=== PATIENT | female | born 1985 | race Caucasian/White ===

== ENCOUNTER 2023-09-03 19:03 | Emergency (ER) | payer OTHER, SELFPAY ==
[2023-09-03 19:11] VITALS: BP 120/64
[2023-09-03 19:30] LABS: Hemoglobin 14.1 g/dL (12.0-16.0); Mean Corp Hgb Conc. 36.2 g/dL (33.0-37.0); Mean Corpuscular Hgb 33.3 pg (27.0-31.0); Mean Platelet Volume 9.2 fL (7.4-10.4); Platelet Count 249 10^3/uL (130-400); Red Blood Cell Count 4.24 10^6/uL (4.20-5.40); Red Cell Dist. Width 11.4 % (11.5-14.5); White Blood Cell Count 8.5 10^3/uL (4.8-10.8)
[2023-09-03 19:31] LABS: Urine Albumin Negative (Neg - Trace); Urine Bilirubin Negative (Negative); Urine Character Clear (Clear); Urine Color Yellow; Urine Glucose Negative (Negative); Urine Ketone Negative (Negative); Urine Leukocyte Negative (Negative); Urine Nitrite Negative (Negative); Urine Occult Blood Negative (Negative); Urine Urobilinogen Negative (Neg - 1+)
[2023-09-03 19:45] LABS: Blood Urea Nitrogen 22 mg/dl (7-17); Calcium 9.9 mg/dl (8.4-10.2); Carbon Dioxide 29 mmol/L (22-30); Chloride 99 mmol/L (98-107); Glucose 129 mg/dl (70-99); Potassium 4.2 mmol/L (3.5-5.1); Sodium 136 mmol/L (135-145); eGFR > 60.00
[2023-09-03 23:08] VITALS: BP 115/73
--- NOTE | 2023-09-03 23:18 | ED.GENMED ---
History of Present Illness
General
Chief Complaint: Urinary Symptoms
Source: patient
Time Seen by Provider: 09/03/23 23:07
Travel History
Have you had any contact with someone who has COVID-19?: No
Do you have any symptoms of coronavirus? Fever > 100 degrees, chills, cough, shortness of breath, sore throat, loss of taste or smell, muscle aches, or headache?: No
History of Present Illness
History of Present Illness:
38-year-old female presents to the emergency room complaining of a urinary tract infection. Patient had gone to her primary care doctor because she was experiencing some foul-smelling urine. She had a urinalysis sent which was evidently positive
for nitrates and leukocyte esterase. She was presumptively started on Bactrim. A urine culture was performed which evidently grew E. coli that was resistant to many antibiotics. Patient received a phone call from her doctor today that she had to
come to the emergency room for IV antibiotics because of a resistant organism. Patient denies any fever, dysuria or frequency. She does have some back pain but admits to chronic back pain. She does not really feel any different than her baseline
other than recently developing a runny nose and cold symptoms.
Past History
Past History
ED Past Medical History: Other (Pituitary adenoma)
ED Past Surgical History: Tonsilectomy
Social History
Tobacco: Non-smoker
Alcohol: Occasional
Drug: None
Living: with family
Employment: Employed
Phy Exam
Physical Exam
Physical Exam:
General: Awake, Alert, Oriented X3. No acute distress.
Vitals: unremarkable
Head: Atraumatic
Eyes: Pupils equal, EOMI
Throat: Airway intact, no exudates
Neck: Trachea midline
Lungs: Clear and equal b/l
Heart: Regular rate, no murmurs
Abd: Soft, Nontender, No pulsatile mass
Back: No CVA tenderness to percussion
Neuro: Nonfocal
Skin: Warm, dry, no rash
Extremities: pulses equal b/l, no edema
Course
Orders/Labs/Results
Orders:
Orders
09/03/23 19:21
Basic Metabolic Panel Urgent
Complete Blood Count/No Diff Urgent
Urinalysis Reflex To Culture Urgent
Date Specimen was Collected: 09/03/23
Time Specimen was Collected: 19:15
09/03/23 23:30
COVID-19 Antigen Urgent
Source: Nasal Swab
Influenza A+B Rapid Molecular Urgent
JOHNNY Source: Nasal Swab
Specimen Description:
Abnormal Lab Results
09/03/23
19:21
MCH 33.3 H pg
(27.0-31.0)
RDW 11.4 L %
(11.5-14.5)
BUN 22 H mg/dl
(7-17)
Glucose 129 H mg/dl
(70-99)
09/03/23 19:21
09/03/23 19:21
Vital Signs
Initial and Last Documented VS:
Initial Vital Signs
Temp Pulse Resp BP Pulse Ox
98.3 F 60 18 120/64 100
09/03/23 19:11 09/03/23 19:11 09/03/23 19:11 09/03/23 19:11 09/03/23 19:11
Last Documented Vital Signs
Temp Pulse Resp BP Pulse Ox
98.3 F 53 18 139/66 100
09/03/23 19:11 09/04/23 00:31 09/03/23 19:11 09/04/23 00:31 09/03/23 19:11
MDM/Problems Addressed
Differential Diagnosis Includes:
uti, viral illness, contaminated urine
MDM/Problems Addressed:
Patient sent to the emergency room because of abnormal urine culture that was taken as an outpatient. I was able to review the patient's urinalysis through [facility]. The urine that was done at that time did dip positive for nitrates and leukocyte
esterase however there was a significant number of squamous epithelial cells noted on the microscopic evaluation. The urine culture that was subsequently sent was positive for a bacteria with multiple antibiotic resistance however the patient never
really had true UTI symptoms. She tells me that the urinalysis was sent because of the foul smelling urine. She did not have dysuria, frequency, fever at that time. Currently she does not have any urinary tract symptoms. She does have back pain
but she has chronic back issues. Urinalysis performed here in the emergency room is completely normal. Labs that were sent were essentially normal as well. I do not believe the patient has an active urinary tract infection which requires
treatment. She did recently develop runny nose and some cold-like symptoms. COVID and flu were negative. Patient stable for discharge home.
*Pulse Oximetry
Patient hypoxic: no
*Critical Care Note
Total Time (30-74mins, 75-104mins- exclusive of procedures): Not Applicable
ED Attending Note
-
Portions of this chart may have been created with voice recognition software.� Occasional wrong word or��sound alike� substitutions may have occurred due to the inherent limitations of voice recognition software.
Discharge Plan
Departure
Patient Disposition: Home (Routine Discharge)
Date of Disposition: 09/04/23
Time of Disposition: 00:24
Patient with high blood pressure during this ER visit?: No
Condition: Good
Discharge Problem:
Abnormal laboratory test result, URI, acute
Instructions: Viral Upper Respiratory Infection, Adult (DC)
Prescriptions:
No Action
methylprednisolone [Medrol (Kevin)] 4 MG tablets,dose pack
4 tab PO . DIRECT Qty: 1 0RF
cyclobenzaprine 10 MG tablet
10 mg PO TIDPRN PRN (Reason: back muscle spasm/tightness) Qty: 30 0RF
ibuprofen 600 MG tablet
600 mg PO TIDPRN PRN (Reason: pain) Qty: 30 0RF
hydrocodone-acetaminophen 1 TABLET tablet
1 tab PO Q4HPRN PRN (Reason: pain) Qty: 8 0RF
Referrals:
Leora Mendoza CRNP [Family Provider] -
Interventions
Interventions:
*Risk Screen - Suicide Last Done: 09/03/23 19:11
*General Assessment Last Done: 09/03/23 22:33
*Neglect/Abuse Screening Last Done: 09/03/23 19:11
*ED COVID-19 Vaccine History Last Done: 09/03/23 22:33
*Nursing Disposition Last Done: 09/04/23 00:31
ED-Female Genitourinary Assessment Last Done: 09/03/23 22:33
Discharge Date and Time
Discharge Date/Time: 09/04/23 00:31
[2023-09-04 00:24] LABS: COVID-19 Antigen Negative (Negative)
[2023-09-04 00:29] VITALS: BP 139/66
[2023-09-04 00:31] VITALS: BP 139/66
== END 2023-09-04 00:31 | disposition home or self-care (01) ==
LOC: EMR 19:03
PROVIDERS: Emergency Medicine; EMERGENCY PHYSICIAN Emergency Medicine; FAMILY PHYSICIAN Nurse Practitioner Adult Health
DX: R82.90 Unspecified abnormal findings in urine (principal); J06.9 Acute upper respiratory infection, unspecified; Z11.52 Encounter for screening for COVID-19
CPT/HCPCS: 99283; 80048; 81003; 85027; 87502; 87811

== ENCOUNTER 2025-04-26 12:15 | Emergency (ER) | payer OTHER, SELFPAY ==
[2025-04-26 12:22] VITALS: BP 120/81
[2025-04-26] MEDS: NSS 1000 IV (13:23)
[2025-04-26] MEDS: TORADOL 15 MG IV (13:23)
--- NOTE | 2025-04-26 13:26 | ED.GENMED ---
History of Present Illness
General
Chief Complaint: Abdominal Pain
Source: patient
Exam Limitations: none
Time Seen by Provider: 04/26/25 13:15
Nursing documentation reviewed up to this point in time: agreed with
History of Present Illness
History of Present Illness:
Patient is a 40-year-old female who presents to the emergency department for evaluation of right upper abdominal pain. Patient states that she has experienced similar pain intermittently over the past few months however pain seemed to intensified 2
days ago. She describes the pain as located in her right upper abdomen with occasional radiation into her right back. Pain is sharp in quality. Symptoms seem worse with certain movements and have not been clearly correlated to eating. She denies
any chest or upper back pain. She denies any current pleuritic or exertional component.
She denies any associated nausea, vomiting, or fever. No productive cough. No diarrhea or constipation. No dysuria or hematuria.
Patient was seen in urgent care and sent to the emergency department for further evaluation.
She has had family members who have needed to have their gallbladders removed.
Past History
Past History
ED Past Medical History: Other (Pituitary adenoma)
ED Past Surgical History: Tonsilectomy
Social History
Tobacco: Non-smoker
Alcohol: Occasional
Drug: None
Living: with family
Employment: Employed
Review of Systems
Review of Systems
Allergies reviewed?: Yes
All Other Systems: ROS reviewed and negative except as documented in HPI and ROS
Phy Exam
Physical Exam
Physical Exam:
Vitals: Patient's vital signs are stable. Afebrile
General: Patient is well appearing, no acute distress
Skin: Warm and dry, no rashes or lesions
Head: Normocephalic, atraumatic
Eyes: Sclera nonicteric. EOMs intact. No nystagmus.
Throat: Protecting airway
Neck: Normal ROM, no cervical spine tenderness, no meningismus
Cardiac: Regular rate and rhythm, no murmurs.
Pulm: Normal respiratory effort. Lungs clear bilaterally
Abdomen: Nondistended. Abdomen soft. Mild tenderness in right upper/mid abdomen. No rebound or guarding. Negative Chicas sign. No focal tenderness at McBurney's point.
Extremities: No evidence of cyanosis or edema. No calf tenderness. Palpable DP pulses bilaterally
Neuro: AAOx3. Grossly intact.
Psychiatric: Normal affect.
Course
Orders/Labs/Results
Orders:
Orders
04/26/25 13:15
0.9% Sodium Chloride 1000 ml [Nss] 1,000 ml IV BOLUS
Ketorolac [Toradol] 15 mg IV NOW STA
Test Result ONCE
US Abdomen Complete/Upper Urgent
Comment:
Reason For Exam: RUQ pain
04/26/25 13:21
Complete Blood Count/With Diff Urgent
Comprehensive Metabolic Panel Urgent
HCG, Serum Qualitative Screen Urgent
Lipase Urgent
04/26/25 15:36
Urinalysis Reflex To Culture Urgent
Date Specimen was Collected: 04/26/25
Time Specimen was Collected: 13:21
Urine Microscopic Reflex Cult Urgent
Urine Culture Urgent
JOHNNY Source: U
Specimen Description:
Date Specimen was Collected: 04/26/25
Time Specimen was Collected: 13:21
04/26/25 15:40
CT Abd/pelvis W Iv Cont Urgent
Comment:
Reason For Exam: RUQ pain
Abnormal Lab Results
04/26/25 04/26/25
13:21 15:36
MCH 32.6 H pg
(27.0-31.0)
RDW 11.1 L %
(11.5-14.5)
Absolute Monos (auto) 0.7 H 10^3/uL
(0.1-0.6)
Sodium 133 L mmol/L
(135-145)
Ur Occult Blood Reflex 3+ A
(Negative)
Urine Nitrite (Reflex) Positive A
(Negative)
Urine Urobilinogen 2+ A
(Neg - 1+)
Leukocyte Esterase Rfl 3+ A
(Negative)
Urine RBC 3-6 A /HPF
(0-2)
Urine Bacteria (Reflex) Moderate A
(Negative)
Urine Albumin (Reflex) 2+ A
(Neg - Trace)
04/26/25 13:21
04/26/25 13:21
Vital Signs
Initial and Last Documented VS:
Initial Vital Signs
Temp Pulse Resp BP Pulse Ox
98.4 F 60 18 120/81 98
04/26/25 12:22 04/26/25 12:22 04/26/25 12:22 04/26/25 12:22 04/26/25 12:22
Last Documented Vital Signs
Temp Pulse Resp BP Pulse Ox
98.4 F 65 18 103/52 99
04/26/25 12:22 04/26/25 18:18 04/26/25 18:18 04/26/25 18:18 04/26/25 18:18
MDM/Problems Addressed
Differential Diagnosis Includes:
Not limited to: Biliary colic, acute cholecystitis, choledocholithiasis, pancreatitis, appendicitis, muscle strain/spasm, costochondritis, pleurisy, etc.
MDM/Problems Addressed:
40-year-old female with a few days of right upper abdominal pain. Symptoms do seem worse with movement without any clear postprandial correlation. No associated fever, chills, shortness of breath/chest pain. No vomiting, urinary symptoms, or changes
in bowel habits.
Vitals stable. On exam, patient appears in no distress. She has reproducible tenderness in right upper quadrant with negative Chicas sign. No rebound or guarding. No CVA tenderness. Cardio/pulmonary assessment unremarkable. She has no PE risk
factors. PERC 0.
Differential as above.
Labs without clinically significant abnormalities. No leukocytosis. No abnormalities on chemistry panel. Abdominal US obtained without acute findings.
Give persistent discomfort � shared decision making to pursue further imaging with CT scan which revealed no acute abdominal pathology. Mild hepatomegaly and intrahepatic portal edema noted. Do not feel related to patients symptoms and discussed
outpatient f/u.
Urine potentially infected however do not feel related to presenting symptoms. Otherwise work-up in ED negative. Pain may be muscular.
Will treat UTI although feel stable for discharge home with primary care follow-up and return precautions. Provided information for G.I. follow up if needed for further evaluation. Patient comfortable w/ plan.
Chronic conditions affecting care:
N/A
Acute Exacerbation and/or Progression of Chronic Illness:
N/A
*Radiology
Radiology exam reviewed: radiology read reviewed
*Pulse Oximetry
SaO2: 98
Oxygen Mode of Delivery: Room air
Patient hypoxic: no
*EKG
Interpreted by ED Provider?: NA
*Manager Of Sustainability Interpretation
Rate: Manager Of Sustainability- N/A
*Critical Care Note
Total Time (30-74mins, 75-104mins- exclusive of procedures): Not Applicable
ED Attending Note
-
Portions of this chart may have been created with voice recognition software.� Occasional wrong word or��sound alike� substitutions may have occurred due to the inherent limitations of voice recognition software.
Discharge Plan
Departure
Patient Disposition: Home (Routine Discharge)
Date of Disposition: 04/26/25
Time of Disposition: 18:44
Patient with high blood pressure during this ER visit?: No
Condition: Good
Discharge Problem:
Right upper quadrant abdominal pain, UTI (urinary tract infection)
Instructions: Urinary tract infection in adults - ED (DC), Abdominal Pain
Prescriptions:
New
sulfamethoxazole-trimethoprim [Bactrim DS] 800-160 mg tablet
1 tab PO BID 5 Days Qty: 10 0RF
No Action
methylprednisolone [Medrol (Kevin)] 4 MG tablets,dose pack
4 tab PO . DIRECT Qty: 1 0RF
cyclobenzaprine 10 MG tablet
10 mg PO TIDPRN PRN (Reason: back muscle spasm/tightness) Qty: 30 0RF
ibuprofen 600 MG tablet
600 mg PO TIDPRN PRN (Reason: pain) Qty: 30 0RF
hydrocodone-acetaminophen 1 TABLET tablet
1 tab PO Q4HPRN PRN (Reason: pain) Qty: 8 0RF
Referrals:
Baljit Barcenas MD [Active, Gastroenterology]
Leora Mendoza CRNP [Family Provider, General]
Activity Restrictions/Additional Instructions:
RETURN TO THE EMERGENCY DEPARTMENT ANY FEVER, CHILLS, PERSISTENT/WORSENING ABDOMINAL PAIN, INTRACTABLE NAUSEA/VOMITING, SIGNIFICANT SWELLING IN LOWER EXTREMITIES, CHEST PAIN OR SHORTNESS OF BREATH, WORSENING IN CURRENT SYMPTOMS, OR ANY OTHER CONCERNS
- Please follow-up with your primary care and GI on incidental findings noted on CT scan.
- Your urine appeared potentially infected today in the emergency department. A prescription for an antibiotic has been sent to your pharmacy.
- Continue to take Tylenol and/or Motrin as needed for pain. You can try topical lidocaine patches.
- Follow-up with primary care for further evaluation or management
Monitor your symptoms closely and return to the emergency department with any acute worsening/new symptoms or any other concerns
Interventions
Interventions:
*Risk Screen - Suicide Last Done: 04/26/25 12:23
*General Assessment Last Done: 04/26/25 12:23
*Neglect/Abuse Screening Last Done: 04/26/25 12:23
*ED- Fall Risk Assessment Last Done: 04/26/25 18:44
*ED COVID-19 Vaccine History Last Done: 04/26/25 18:44
*ED Influenza Vaccine History Last Done: 04/26/25 18:44
*Nursing Disposition Last Done: 04/26/25 18:44
[facility] Assessment Last Done: 04/26/25 15:14
Discharge Date and Time
Print Language: [place] CITIZEN
[2025-04-26 13:38] LABS: Hematocrit 41.2 % (37.0-47.0); Hemoglobin 14.2 g/dL (12.0-16.0); Mean Corp Hgb Conc. 34.5 g/dL (33.0-37.0); Mean Corpuscular Volume 94.7 fL (81.0-99.0); Nucleated Red Blood Cells % 0 %; Platelet Count 239 10^3/uL (130-400); Red Cell Dist. Width 11.1 % (11.5-14.5)
[2025-04-26 13:47] LABS: HCG, Serum Qualitative Screen Negative
[2025-04-26 13:51] LABS: ALT (SGPT) 15 U/L (0-35); AST (SGOT) 22 U/L (14-36); Albumin 4.5 g/dl (3.5-5.0); Alkaline Phosphatase 45 U/L (38-126); Blood Urea Nitrogen 14 mg/dl (7-17); Calcium 9.4 mg/dl (8.4-10.2); Carbon Dioxide 27 mmol/L (22-30); Chloride 101 mmol/L (98-107); Glucose 83 mg/dl (70-99); Lipase 54 U/L (23-300); Potassium 4.7 mmol/L (3.5-5.1); Sodium 133 mmol/L (135-145); Total Protein 7.4 g/dl (6.3-8.2); eGFR > 60.00
[2025-04-26 15:51] LABS: Urine Character Clear (Clear)
[2025-04-26 16:02] LABS: Urine Squamous Cell >30 /LPF (Few)
[2025-04-26 18:18] VITALS: BP 103/52
== END 2025-04-26 18:44 | disposition home or self-care (01) ==
LOC: EMR 12:15
PROVIDERS: Physician Assistant; EMERGENCY PHYSICIAN Emergency Medicine; FAMILY PHYSICIAN Nurse Practitioner Adult Health
DX: R10.11 Right upper quadrant pain (principal); N39.0 Urinary tract infection, site not specified; R16.0 Hepatomegaly, not elsewhere classified; Z86.018 Personal history of other benign neoplasm
CPT/HCPCS: 99284; 96374; 96361; 74177; 76700; 80053; 81003; 81015; 83690; 84703; 85025; 87086; Q9967